=== PATIENT | male | born 1965 ===

== ENCOUNTER → 2017-06-17 | Emergency (ER) | payer OTHER ==
[~2017-06-17] MED LIST: CLONAZEPAM1 MG; DILANTIN100 MG
== END | disposition left against medical advice (07) ==
LOC: ER 17:40
DX: Z53.20 Procedure and treatment not carried out because of patient's decision for unspecified reasons (principal)

== ENCOUNTER 2017-06-18 09:23 | Outpatient (CLI) | payer OTHER | END 2017-06-18 10:19 | disposition home or self-care (01) | LOC: RAD 09:23 | DX: R10.9 Unspecified abdominal pain (principal); M12.9 Arthropathy, unspecified; M19.90 Unspecified osteoarthritis, unspecified site ==

== ENCOUNTER 2017-06-18 09:46 | Outpatient (CLI) | payer OTHER | END 2017-06-18 09:57 | disposition home or self-care (01) | LOC: LAB 09:46 | DX: E11.9 Type 2 diabetes mellitus without complications (principal) ==

== ENCOUNTER 2023-05-19 10:09 | Outpatient (CLI) | payer OTHER | END 2023-05-19 10:19 | disposition home or self-care (01) | LOC: MRI 10:09 | PROVIDERS: ATTEND General Practice | DX: I63.30 Cerebral infarction due to thrombosis of unspecified cerebral artery (principal) | CPT/HCPCS: 70551 ==